=== PATIENT | female | born 1940 | race Caucasian/White ===

== ENCOUNTER 2022-05-12 19:29 | Inpatient (IN) | payer MEDICARE ==
[~2022-05-12] VITALS: Ht 162.6 cm; Wt 60.0 kg
[2022-05-12 19:46] VITALS: BP_SYST 136
[2022-05-12] MEDS ORDERED: KETAMINE HCL 500 MG/10 ML VIAL IVP ONE (20:00)
[2022-05-12] MEDS ORDERED: MIDAZOLAM HCL 5 MG/5 ML VIAL IVP ONE (20:00)
--- NOTE | 2022-05-12 21:00 | NUR ---
Patient resting in bed, alert and oriented x 4, no voiced c/o at this time. no s/s of any distress noted. Updated on plan of care, consent signed for bedside procedure. #22g established in right hand, side rails remain up will continue to monitor.
--- NOTE | 2022-05-12 21:28 | NUR ---
BEDSIDE PROCEDURE HAS BEEN COMPLETED, AWAITING POST XRAY. pATIENT RESTING AROUSABLE, NO VOICED C/O AT THIS TIME.
--- NOTE | 2022-05-12 22:11 | NUR ---
Patient aware may transfer to [facility], continues to rest without c/o, will continue to monitor.
--- NOTE | 2022-05-12 22:40 | NUR ---
Patient continues to rest without c/o, family at bedside has been updated on plan of care. no s/s of any distress noted.
--- NOTE | 2022-05-12 23:07 | NUR ---
COVID swab done at this time and sent to lab.
--- NOTE | 2022-05-12 23:47 | NUR ---
Patient and family informed that patient will be staying here, awaiting room assignment. Remains without any c/o at this time. side rails up.
--- NOTE | 2022-05-13 01:15 | NUR ---
Patient awake, repositioned for comfort, no voiced c/o, no s/s of any distress.
--- NOTE | 2022-05-13 03:09 | NUR ---
Patient repositioned for comfort, requested and given water at this time. no change in primay assessment.
--- NOTE | 2022-05-13 04:57 | NUR ---
Note meaghan in EDM - 05/13/22 at 0523 by SDEDAJF Admit bed requested Patient will be admitted to care of Admitted to MS unit. Diagnosis Dislocated right Hip Inpatient (Yes or No) yes Observation (Yes or No) Orientation concerns or request close to nursing station (Yes or No) no Covid Status positive On vent or bipap no Isolation requirements yes Needs a sitter no From Home (Yes or if No enter name of facility) yes Requires Dialysis (Yes or No) no Med Rec Completed (Yes of No) pending
--- NOTE | 2022-05-13 04:57 | NUR ---
Admit bed requested Patient will be admitted to care of Admitted to MS unit. Diagnosis Dislocated right Hip Inpatient (Yes or No) yes Observation (Yes or No) Orientation concerns or request close to nursing station (Yes or No) no Covid Status positive On vent or bipap no Isolation requirements yes Needs a sitter no From Home (Yes or if No enter name of facility) yes Requires Dialysis (Yes or No) yes, M/W/F Med Rec Completed (Yes of No) pending [facility] report
--- NOTE | 2022-05-13 05:22 | NUR ---
Repositioned at this time.
[2022-05-13] MEDS ORDERED: ACET1TAB93 PO (05:35)
[2022-05-13] MEDS ORDERED: LIP10 PO (05:36)
[2022-05-13] MEDS ORDERED: FAMO20TA8 PO (05:36)
[2022-05-13] MEDS ORDERED: FURO-150 PO (05:37)
[2022-05-13] MEDS ORDERED: LEVO125T8 PO (05:38)
[2022-05-13] MEDS ORDERED: REN800 PO (05:39)
[2022-05-13] MEDS ORDERED: DICL20GE TP (05:42)
[2022-05-13] MEDS ORDERED: DICL100G30 TP (05:42)
[2022-05-13] MEDS ORDERED: LIDO5CRE2 TP (05:45)
[2022-05-13] MEDS ORDERED: NALO4SPR3 NAS (05:46)
[2022-05-13] MEDS ORDERED: VITA1CAP PO (05:47)
[2022-05-13] MEDS ORDERED: VITD2000 PO (05:47)
[2022-05-13] MEDS ORDERED: ACLOVATE (05:50)
--- NOTE | 2022-05-13 05:50 | NUR ---
Medication reconciliation completed with information provided by [facility]. Any prior medication reconciliation on file was reviewed and corrected.
--- NOTE | 2022-05-13 06:42 | NUR ---
Requested and given water at this time. No change in primary assessment, remains without any c/o. Side rails remains up will continue frequent monitoring.
[2022-05-13] MEDS ORDERED: fentaNYL CITRATE/PF 100 MCG/2 ML AMP IVP ONE (07:30)
[2022-05-13 08:55] VITALS: BP_SYST 112
--- NOTE | 2022-05-13 09:02 | NUR ---
Patient will be admitted to care [facility]. Admitted to MED./SURG unit. Will go to room 134B. Belongings list completed. Complete and up to date summary report printed. SBAR report to MEÑO VAZ be given at bedside with opportunity for questions.
--- NOTE | 2022-05-13 10:00 | NUR ---
RECEIVED PATIENT FROM ED VIA STRETCHER ACCOMPANIED BY NURSE. PT IS A 82 YO FEMALE , ADMITTED WITH DX OF RT DISLOCATED FRACTURE. AAOX4, NO COMPLAINTS OF PAIN UPON ARRIVAL. PATIENT MADE COMFORTABLE IN BED. PT REFUSED TO BE TURNED DUE TO DISLOCATION OF RT HIP. COLOSTOMY AND RIGHT UROSTOMY NOTED AND INTACT. UNABLE TO DO FULL SKIN ASSESSMENT AT THIS TIME BECAUSE PATIENT REFUSED TO TURN. WILL F/U LATER. ADMISSION WORKUP IN PROGRESS. WILL CONTINUE TO MONITOR CLOSELY.
[2022-05-13 10:32] VITALS: BP_SYST 112
[2022-05-13 10:40] VITALS: BP_SYST 112
[2022-05-13] MEDS ORDERED: NON-FORMULARY MEDICATION (Diclofenac Sodium (Voltaren Arthritis Pain) 2 GM) TP PRN (14:00)
[2022-05-13] MEDS ORDERED: NALOXONE HCL NAS SCH (14:00)
[2022-05-13] MEDS ORDERED: NALOXONE HCL 0.4 MG/ML AMP (NARCAN) IVP PRN (14:00)
--- NOTE | 2022-05-13 14:01 | NUR ---
CONSULTATION PAGED REASON FOR CONSULTATION:RT HIP FRACTURE WAS CONSULT CALLED?Y PERSON WHO WAS NOTIFIED:MONI CONSULTING PHYSICIAN:SANDRA CONNELYL (SHONA PARKS PROFESSOR OF SOCIAL WORK) CATERING CHEF SPECIALTY:ORTHO CATERING CHEF PHONE NUMBER:[phone] REQUESTING PHYSICIAN:MICHELLE JOSEPH
--- NOTE | 2022-05-13 14:09 | NUR ---
CONSULTATION PAGED REASON FOR CONSULTATION:ESRF WAS CONSULT CALLED?Y PERSON WHO WAS NOTIFIED:ELMER CONSULTING PHYSICIAN:HEATHER BELL ADVERTISING SALES ASSISTANT SPECIALTY:NEPHRO ADVERTISING SALES ASSISTANT PHONE NUMBER:[phone] REQUESTING PHYSICIAN:MICHELLE ANDERSON
[2022-05-13] MEDS ORDERED: LIDOCAINE/PRILOCAINE 5 GM CREAM (EMLA) TP PRN (14:45)
[2022-05-13] MEDS: ACETAMINOPHEN/CODEINE 300 MG-30 MG TABLET PO PRN ×2 (15:39→22:10)
[2022-05-13 15:45] VITALS: BP_SYST 116
[2022-05-13 16:00] VITALS: BP_SYST 116
[2022-05-13] MEDS: SEVELAMER CARBONATE 800 MG TABLET PO SCH (17:02)
[2022-05-13] MEDS: ONDANSETRON HCL 4 MG/2 ML VIAL IVP PRN (17:33)
--- NOTE | 2022-05-13 18:36 | NUR ---
PT INSTRUCTED TO MAINTAIN NPO AFTER MIDNIGHT FOR SURGERY, VERBALIZED UNDERSTANDING.
--- NOTE | 2022-05-13 18:47 | NUR ---
DR BRINK ROUNDED ON PATIENT, PLANS FOR SURGERY TOMORROW. SPOKE WITH HIM REGARDING BUCKS TRACTION ORDERED BY DR SOTO, DR BRINK DO NOT RECOMMEND BUCKS TRACTION AT TIME. WILL NOTIFY DR ALINA GIANG.
[2022-05-13] MEDS: HYDROCORTISONE 1% 28.35 GM TOPICAL OINT. TP SCH (21:00)
[2022-05-13] MEDS ORDERED: ACLOVATE SCH (21:00)
[2022-05-13] MEDS: ENOXAPARIN SODIUM 30 MG/0.3 ML SYRINGE SUBCUT SCH (22:10)
[2022-05-14] VITALS (7 sets, daily range): BP systolic 73–130
[2022-05-14] MEDS: LEVOTHYROXINE SODIUM 0.125 MG TABLET PO SCH (06:19)
[2022-05-14 07:05] LABS: BASOPHILS % (AUTO) 0.5 % (0.0-2.0); EOSINOPHILS # (AUTO) 0.1 K/uL (0.0-0.4); EOSINOPHILS % (AUTO) 1.2 % (0.0-4.0); HEMATOCRIT 33.2 % (36-48); HEMOGLOBIN 10.9 g/dL (12.0-16.0); LYMPHOCYTES # (AUTO) 1.8 K/uL (1.0-5.5); LYMPHOCYTES % (AUTO) 19.9 % (20.5-51.5); MEAN CORPUSCULAR HEMOGLOBIN 32 pg (27-31); MEAN CORPUSCULAR HGB CONC 33 % (32-36); MEAN CORPUSCULAR VOLUME 97 fL (79.0-98.0); MONOCYTES # (AUTO) 1.1 K/uL (0.0-1.0); MONOCYTES % (AUTO) 12.4 % (1.7-9.3); NEUTROPHILS # (AUTO) 5.8 K/uL (1.8-7.7); PLATELET COUNT (AUTO) 273 K/uL (130-430); RED BLOOD CELL COUNT(AUTO) 3.41 MIL/uL (4.2-6.2); RED CELL DISTRIBUTION WIDTH 13.9 % (9.0-15.0); WHITE BLOOD COUNT (AUTO) 8.8 K/uL (4.8-10.8)
[2022-05-14 07:30] LABS: ANION GAP 14 (5-15); CALCIUM 9.6 mg/dL (8.4-11.0); CHLORIDE 95 mmol/L (98-107); CREATININE 7.36 mg/dL (0.55-1.30); GLUCOSE 101 mg/dL (70-99); UREA NITROGEN, BLOOD 55 mg/dL (8-21)
[2022-05-14] MEDS: SEVELAMER CARBONATE 800 MG TABLET PO SCH ×3 (08:00→18:06)
[2022-05-14] MEDS: FAMOTIDINE 20 MG TABLET PO SCH (09:00)
[2022-05-14] MEDS: ATORVASTATIN 10 MG TABLET PO SCH (09:00)
[2022-05-14] MEDS: CHOLECALCIFEROL (VITAMIN D3) 2,000 UNIT TABLET PO SCH (09:00)
[2022-05-14] MEDS: VITAMIN B COMPLEX 1 CAP/TAB PO SCH (09:00)
[2022-05-14] MEDS: FUROSEMIDE 20 MG TABLET PO SCH (09:00)
[2022-05-14] MEDS: HYDROCORTISONE 1% 28.35 GM TOPICAL OINT. TP SCH ×2 (09:01→21:00)
--- NOTE | 2022-05-14 14:02 | NUR ---
Surgery on hold per anesthesia for cardiac clearance. Dr. Rudolph called and notified. Echo and cardiology consult with Dr. Saucedo ordered. Valarie Acevedo RN.
--- NOTE | 2022-05-14 15:20 | NUR ---
CONSULTATION REASON FOR CONSULT: SURGERY CLEARANCE CONSULTING PHYSICIAN: Yamileth JENNINGS ORDERED BY: Renan LAURENT DR IS AWARE OF THE CONSULT AND WILL SEE PT TODAY
[2022-05-14] MEDS: ACETAMINOPHEN/CODEINE 300 MG-30 MG TABLET PO PRN (18:52)
--- NOTE | 2022-05-14 20:17 | NUR ---
Dietitian Recommendations * Remain NPO for planned Sx * Recommend advance to Renal diet + Nepro daily s/p Sx * Continue MVI and D3 daily Please refer to nutrition assessment for details, thanks! Aaliyah Bullock MPH, RDN
[2022-05-14] MEDS: ONDANSETRON HCL 4 MG/2 ML VIAL IVP PRN (20:19)
[2022-05-14] MEDS ORDERED: NS 500 ML IV ONE (21:00)
[2022-05-14] MEDS: ENOXAPARIN SODIUM 30 MG/0.3 ML SYRINGE SUBCUT SCH (21:00)
--- NOTE | 2022-05-14 22:00 | NUR ---
OPENING NOTE- ASSESSED PT AT BEDSIDE. PT AWAKE AND ORIENTED. C/O NAUSEA. V/S OBTAINED- BP 73/38 AND 76/43. MAP 53. S/P HD TODAY- NO OUTPUT.ALSO ASSESSED BY CHARGE NURSE MICHAELLE. MICHAELLE NOTIFIED TO DR COSTELLO AND RECEIVED ORDER TO GIVE 500 ML 0.9% NS. CHARGE NURSE ALSO NOTIFIED TO DR BASILIO REGARDING POSITIVE COVID 19 PCR RESULT.
[2022-05-15] VITALS (9 sets, daily range): BP systolic 81–115
--- NOTE | 2022-05-15 00:30 | NUR ---
AFTER 500 ML NS BOLUS, BP WENT UP-113/51 MMHG AND HR 88 BPM. INFORMED PT NPO AFTER MN FOR POSSIBLE RT HIP SURGERY.
[2022-05-15 04:06] LABS: ALANINE AMINOTRANSFERASE 31 U/L (12-78); ALBUMIN 2.4 g/dL (3.4-4.8); ANION GAP 8 (5-15); ASPARTATE AMINOTRANSFERASE 35 U/L (10-37); CALCIUM 8.7 mg/dL (8.4-11.0); CHLORIDE 98 mmol/L (98-107); CREATININE 4.73 mg/dL (0.55-1.30); GLUCOSE 120 mg/dL (70-99); TOTAL BILIRUBIN 0.5 mg/dL (0.0-1.0); UREA NITROGEN, BLOOD 32 mg/dL (8-21)
[2022-05-15 04:11] LABS: PROTHROMBIN TIME 10.5 SECS (9.5-12.5)
[2022-05-15] MEDS ORDERED: NS 500 ML IV ONE (06:30)
--- NOTE | 2022-05-15 06:37 | NUR ---
CALLED DR BASILIO REGARDING LOW BP-94/44 MMHG. WILL GIVE NS 500 ML BOLUS.
[2022-05-15] MEDS: LEVOTHYROXINE SODIUM 0.125 MG TABLET PO SCH (06:47)
[2022-05-15] MEDS: SEVELAMER CARBONATE 800 MG TABLET PO SCH ×4 (08:00→18:00)
[2022-05-15] MEDS: VITAMIN B COMPLEX 1 CAP/TAB PO SCH (09:00)
[2022-05-15] MEDS: ATORVASTATIN 10 MG TABLET PO SCH (09:00)
[2022-05-15] MEDS: FAMOTIDINE 20 MG TABLET PO SCH (09:00)
[2022-05-15] MEDS: FUROSEMIDE 20 MG TABLET PO SCH (09:00)
[2022-05-15] MEDS: CHOLECALCIFEROL (VITAMIN D3) 2,000 UNIT TABLET PO SCH (09:00)
--- NOTE | 2022-05-15 09:27 | NUR ---
PATIENT LEFT FOR SURGERY Patient left with OR nurses for surgery via hospital bed.
[2022-05-15] MEDS ORDERED: ETOMIDATE 20 MG/ 10 ML VIAL (AMIDATE) ONE (09:30)
[2022-05-15] MEDS ORDERED: SEVOFLURANE 15 MIN GAS INH ONE (09:30)
[2022-05-15] MEDS ORDERED: ONDANSETRON HCL 4 MG/2 ML VIAL ONE (09:30)
[2022-05-15] MEDS ORDERED: PROPOFOL 200MG/ 20ML VIAL (DIPRIVAN) IV ONE (09:30)
[2022-05-15] MEDS ORDERED: NS 1000 ML IV.SOLN IV ONE (09:30)
[2022-05-15] MEDS ORDERED: MEPERIDINE HCL/PF 25 MG/ML DISP.SYRIN IVP PRN (10:30)
[2022-05-15] MEDS ORDERED: METOCLOPRAMIDE HCL 10 MG/2 ML VIAL IVP PRN (10:30)
[2022-05-15] MEDS ORDERED: MORPHINE 4 MG INJ. 4 MG/ML VIAL IVP PRN (10:30)
[2022-05-15] MEDS ORDERED: ONDANSETRON HCL 4 MG/2 ML VIAL IVP PRN (10:30)
--- NOTE | 2022-05-15 11:22 | NUR ---
PATIENT RETURNED FROM PACU Patient returned to room, no sign of distress and denies pain at this time. Vitals taken and within normal range. Patient educated on safety precautions. Assisted patient in calling her daughter. All needs met at this time and safety checks made.
[2022-05-15] MEDS: ACETAMINOPHEN/CODEINE 300 MG-30 MG TABLET PO PRN (12:41)
[2022-05-15] MEDS: HYDROCORTISONE 1% 28.35 GM TOPICAL OINT. TP SCH ×2 (12:41→21:00)
--- NOTE | 2022-05-15 13:20 | NUR ---
LISBET Rudolph regarding patient's blood pressure. Addendum: 05/15/22 at 1341 by Tammie Lopez LVN SPOKE WITH , NEW ORDERS RECEIVED
[2022-05-15] MEDS: NACL 0.9% 1,000 ML IV SCH (13:45)
--- NOTE | 2022-05-15 14:24 | NUR ---
Request for transfer FAXed to [facility] per reque of Dr Abbasi
--- NOTE | 2022-05-15 14:32 | NUR ---
ROUNDS Patient in bed resting with eyes closed, no sign of distress or pain. Patient's breathing is nonlabored and even on room air. All needs met at this time and safety checks made.
--- NOTE | 2022-05-15 17:10 | NUR ---
SPOKE WITH PATIENT'S DAUGHTER Spoke with Maddy ([phone]), patient's daughter, and updated her on the patient's status and transfer to [facility]. All questions answered at this time.
--- NOTE | 2022-05-15 19:22 | NUR ---
CLOSING NOTE Patient in bed resting, no sign of distress and denies pain at this time. Patient tolerated her dinner and is drinking fluids. Patient and her family have been updated on the plan of care including discharge to [facility] when a bed is available, verbalized understanding. Comfort needs met throughout the shift. IV is patent and running prescribed fluids. All needs met at this time and safety checks made. Endorsed to night warehouse manager nurse.
--- NOTE | 2022-05-15 20:25 | NUR ---
Paged Dr. Shelley s/w Deloris
--- NOTE | 2022-05-15 20:30 | NUR ---
HIGH ALERT NOTE: Called back at identified within the medical roster to verify physician authenticity. Addendum: 05/15/22 at 2031 by Robin Forte RN RN [phone]
--- NOTE | 2022-05-15 20:30 | NUR ---
20:15 PM RECEIVED CALL FROM [facility]- CLARK FROM [facility] CALLED ABOUT PT'S BED. NURSE INFORMED TO [facility]ARK ABOUT PT'S LOW BP- 80'S/30'S EVEN THOUGH PT'S RECEIVING NS AT 70 ML/HR SINCE 2 PM. 20:30 PM -[facility] [employer] CALLED NURSE AGAIN REGARDING PT'S LOW BP. UPDATED WITH RECENT BP. SHE WANTS US TO TREAT PT'S LOW BP TONIGHT AND THEY WILL F/U IN AM. HOLD TRANSFER TONIGHT PER [facility].
--- NOTE | 2022-05-15 20:35 | NUR ---
PAGED DR [place]O. [facility] COSTELLO REGARDING PT'S HYPOTENSION. RECEIVED ORDER TO GIVE 25% ALBUMIN 100 ML X 1 AND CONTINUE NS AT 70 ML/HR.
[2022-05-15] MEDS ORDERED: ALBUMIN HUMAN 25% 100 ML IV ONE (20:45)
[2022-05-15] MEDS: ENOXAPARIN SODIUM 30 MG/0.3 ML SYRINGE SUBCUT SCH (21:27)
--- NOTE | 2022-05-15 21:30 | NUR ---
DR MENA MADE ROUNDING. MADE DR MENA AWARE ABOUT PT'S HYPOTENSION, DR COSTELLO'S ALBUMIN ORDER AND HOLD TRANSFER TO [facility]. ALSO INFORMED ABOUT COVID PCR POSITIVE RESULT AND STATED THAT WE NEED TO CONTINUE ISOLATION PROCEDURE.
[2022-05-16] VITALS (8 sets, daily range): BP systolic 92–108
--- NOTE | 2022-05-16 03:31 | NUR ---
PT ALLOWED US TO REMOVE OLD DIAPER- PT REFUSED DUE TO RT HIP PAIN AND UNABLE TO MOVE. NOTICED PT HAS NONBLANCHABLE REDNESS ON INNER ANKLE, RT INNER/POSTERIOR THIGH AND GROIN. GIVEN LANEY CARE. KEPT ABDUCTION PILLOW BETWEEN LEG. RLQ COLOSTOMY WITH BROWNISH LOOSE STOOL AND RT BACK NEPHROSTOMY TUBE WITH YELLOW SMALL AMOUNT URINE. LEFT AVF PRESENT BRUIT AND THRILL. OFFERED WATER FREQUENTLY. NS AT 70 ML/HR AND LAST BP-95/42 MMHG.
[2022-05-16] MEDS: NACL 0.9% 1,000 ML IV SCH ×2 (06:30→18:02)
[2022-05-16] MEDS: LEVOTHYROXINE SODIUM 0.125 MG TABLET PO SCH (06:39)
[2022-05-16 07:18] LABS: BASOPHILS % (AUTO) 0.5 % (0.0-2.0); EOSINOPHILS # (AUTO) 0.1 K/uL (0.0-0.4); LYMPHOCYTES # (AUTO) 1.2 K/uL (1.0-5.5); LYMPHOCYTES % (AUTO) 22.6 % (20.5-51.5); MEAN CORPUSCULAR HEMOGLOBIN 32 pg (27-31); MEAN CORPUSCULAR HGB CONC 33 % (32-36); MEAN CORPUSCULAR VOLUME 98 fL (79.0-98.0); MONOCYTES # (AUTO) 0.8 K/uL (0.0-1.0); MONOCYTES % (AUTO) 15.1 % (1.7-9.3); NEUTROPHILS # (AUTO) 3.3 K/uL (1.8-7.7); NEUTROPHILS % (AUTO) 59.8 % (40.0-70.0); PLATELET COUNT (AUTO) 165 K/uL (130-430); RED BLOOD CELL COUNT(AUTO) 2.01 MIL/uL (4.2-6.2); RED CELL DISTRIBUTION WIDTH 13.7 % (9.0-15.0); WHITE BLOOD COUNT (AUTO) 5.5 K/uL (4.8-10.8)
[2022-05-16 07:24] LABS: ANION GAP 12 (5-15); CALCIUM 7.4 mg/dL (8.4-11.0); CHLORIDE 106 mmol/L (98-107); CREATININE 5.08 mg/dL (0.55-1.30); GLUCOSE 83 mg/dL (70-99); UREA NITROGEN, BLOOD 42 mg/dL (8-21)
[2022-05-16 08:00] LABS: HEMATOCRIT 19.7 % (36-48); HEMOGLOBIN 6.5 g/dL (12.0-16.0)
--- NOTE | 2022-05-16 08:00 | NUR ---
Relayed critical result of H/H (6.5/19.7) to Dr. Rudolph with order to transfuse 2 units of PRBC during Dialysis. House sup and dialysis nurse made aware. Patient's asymptomatic for Anemia, no bleeding noted. HR within normal limit.
[2022-05-16] MEDS: HYDROCORTISONE 1% 28.35 GM TOPICAL OINT. TP SCH ×2 (09:00→23:28)
[2022-05-16] MEDS: FAMOTIDINE 20 MG TABLET PO SCH (10:10)
[2022-05-16] MEDS: SEVELAMER CARBONATE 800 MG TABLET PO SCH ×3 (10:10→18:00)
[2022-05-16] MEDS: FUROSEMIDE 20 MG TABLET PO SCH (10:10)
[2022-05-16] MEDS: VITAMIN B COMPLEX 1 CAP/TAB PO SCH (10:10)
[2022-05-16] MEDS: ATORVASTATIN 10 MG TABLET PO SCH (10:11)
[2022-05-16] MEDS: CHOLECALCIFEROL (VITAMIN D3) 2,000 UNIT TABLET PO SCH (10:11)
--- NOTE | 2022-05-16 11:00 | NUR ---
Vania from [facility] called. Updated her on patient's condition that patient will receive 2 units of PRBC's due to H/H 6.5/19.7. Vania said we'll see if the patient is stable to transfer tomorrow. Patient's a/o x4, verbally responsive in no acute distress. BP's still in low side, high 90's to low 100's, patient's asymptomatic.
--- NOTE | 2022-05-16 19:15 | NUR ---
change of shift.pt.presents isolation;droplet 2/t covid19+status.pt.presents s/p surgery lt.hip reduction.pt.presents iv access location rt.hand intact;patent iv fluids infusing.pt.presents hemo-dialysis history.pt.dialized:05/16/22.h/d acces location:lt.av-shunt.pt.maintains b/p status low status.md's apprised.pt.presents 02-sat%=96@room air.pt.presents rt. nephrostomy tube intact;patent.pt.submitted to blood transfusion:05/16/22.completed.cbc in am.allison light/telephone w/in access of the pt.
--- NOTE | 2022-05-16 20:00 | NUR ---
pt.assessed.v/s assessed values note b/p status low status.pt.asypmtomatic.o2-sat%=96%@room air.iv access intact;patent.rt.nephrostomy tube intact.colostomy location rlq intact;patent.pt.assessed for cleanliness.pt. repositioned.pt.apprised that snacks/beverages are available w/in the shift.jpt.requested water;provided.call light/telephone placed w/in access of the pt.
--- NOTE | 2022-05-16 21:00 | NUR ---
2100p medications administered.pt.capable to ingest the po medications w/out difficulty.call light/telephone placed w/in access of the pt.
--- NOTE | 2022-05-16 22:00 | NUR ---
pt.assessed.pt.requested medication;pain.tylenol#3 1 tab po administered.to assess the efficacy of the pain medication per pain mgx protocol.iv access,rt.nephrostomy tube intact,patent.o2-sat%=96%.pt.assessed for cleanliness.pt.repositioned.call light/ telephone placed w/in access of the pt.
[2022-05-16] MEDS: ENOXAPARIN SODIUM 30 MG/0.3 ML SYRINGE SUBCUT SCH (23:28)
[2022-05-16] MEDS: ACETAMINOPHEN/CODEINE 300 MG-30 MG TABLET PO PRN (23:29)
--- NOTE | 2022-05-17 | NUR ---
pt.assessed.v/s assessed values note b/p status;low status.02-sat%=96%.no c/o pain,nausea.no requests posited @this hour.iv access/nephrostomy tube intact;patent.pt.repositioned.call light/telephone placed w/in access of the pt.
[2022-05-17 00:28] VITALS: BP_SYST 98
--- NOTE | 2022-05-17 02:00 | NUR ---
pt.assessed.pt.quiescent;somnolent.o2-sat%=96%.per flacc pain mgx pt.absent facial grimaces/body posturing.iv access/ nephrostomy tube intact.pt.repositioned.call light/telephone placed w/in access of the pt.
--- NOTE | 2022-05-17 04:00 | NUR ---
pt.assessed.v/s assessed note b/p value low status.iv access,rt.nephrotomy,colostomy intact;patent.o2-sat%=96%. pt.assessed for cleanliness.pt.repositioned.call light/telephone placed w/in access of the pt.
--- NOTE | 2022-05-17 06:00 | NUR ---
pt.assessed.no c/o pain,nausea.rt.nephrostomy,colostomy attended to.02-sat%=96%.pt.weighed.pt.repositioned. call light/telephone placed w/in access of the pt.
[2022-05-17] MEDS: LEVOTHYROXINE SODIUM 0.125 MG TABLET PO SCH (07:00)
[2022-05-17 07:19] LABS: BASOPHILS % (AUTO) 0.3 % (0.0-2.0); EOSINOPHILS # (AUTO) 0.1 K/uL (0.0-0.4); EOSINOPHILS % (AUTO) 1.6 % (0.0-4.0); HEMATOCRIT 25.6 % (36-48); HEMOGLOBIN 8.6 g/dL (12.0-16.0); LYMPHOCYTES # (AUTO) 0.9 K/uL (1.0-5.5); MEAN CORPUSCULAR HEMOGLOBIN 31 pg (27-31); MEAN CORPUSCULAR HGB CONC 34 % (32-36); MEAN CORPUSCULAR VOLUME 93 fL (79.0-98.0); MONOCYTES # (AUTO) 0.6 K/uL (0.0-1.0); NEUTROPHILS # (AUTO) 2.4 K/uL (1.8-7.7); NEUTROPHILS % (AUTO) 60.1 % (40.0-70.0); PLATELET COUNT (AUTO) 174 K/uL (130-430); RED BLOOD CELL COUNT(AUTO) 2.77 MIL/uL (4.2-6.2); RED CELL DISTRIBUTION WIDTH 15.9 % (9.0-15.0)
[2022-05-17 07:33] LABS: ANION GAP 12 (5-15); CHLORIDE 109 mmol/L (98-107); CREATININE 2.95 mg/dL (0.55-1.30); GLUCOSE 74 mg/dL (70-99); UREA NITROGEN, BLOOD 22 mg/dL (8-21)
[2022-05-17 07:47] VITALS: BP_SYST 111
[2022-05-17 07:53] LABS: CALCIUM 6.9 mg/dL (8.4-11.0)
[2022-05-17] MEDS: SEVELAMER CARBONATE 800 MG TABLET PO SCH ×3 (08:00→18:00)
[2022-05-17] MEDS: HYDROCORTISONE 1% 28.35 GM TOPICAL OINT. TP SCH ×2 (09:00→21:00)
[2022-05-17] MEDS: FAMOTIDINE 20 MG TABLET PO SCH (09:10)
[2022-05-17] MEDS: VITAMIN B COMPLEX 1 CAP/TAB PO SCH (09:10)
[2022-05-17] MEDS: FUROSEMIDE 20 MG TABLET PO SCH (09:10)
[2022-05-17] MEDS: ATORVASTATIN 10 MG TABLET PO SCH (09:10)
[2022-05-17] MEDS: CHOLECALCIFEROL (VITAMIN D3) 2,000 UNIT TABLET PO SCH (09:11)
[2022-05-17] MEDS: NACL 0.9% 1,000 ML IV SCH (09:12)
--- NOTE | 2022-05-17 10:41 | NUR ---
[facility] REQUESTS BED IN MEDICAL SURGICAL UNIT FOR PATIENT TRANSFER. NEW REQUEST TO HAVE PATIENT IN AGREEMENT FOR TRANSFER WITH COPY OF CHART AND CD AVAILABLE.
--- NOTE | 2022-05-17 12:10 | NUR ---
PATIENT SAYS SHE ONLY USES [facility] WHEN SHE IS NOT ON HER RENAL DIET.
[2022-05-17 14:13] VITALS: BP_SYST 114
[2022-05-17 18:09] VITALS: BP_SYST 112
[2022-05-17 20:00] VITALS: BP_SYST 118
[2022-05-17] MEDS: ENOXAPARIN SODIUM 30 MG/0.3 ML SYRINGE SUBCUT SCH (21:00)
--- NOTE | 2022-05-17 21:22 | NUR ---
CALLED AFTER [facility]OUR [facility] SPOKE WITH AFTER HOURS AND PER FRONT END UI DEVELOPER NOTES IT SAYS NO BEDS AVAIL. AT [facility] . WILL WORK ON IT AGAIN. IT SAYS MIGHT TO DISPO PT TO SNF WOULD BE FASTER.
[2022-05-18] MEDS: ACETAMINOPHEN/CODEINE 300 MG-30 MG TABLET PO PRN ×2 (00:28→21:42)
[2022-05-18] MEDS: NACL 0.9% 1,000 ML IV SCH ×3 (00:30→23:23)
[2022-05-18 04:00] VITALS: BP_SYST 105
[2022-05-18 05:50] LABS: BASOPHILS % (AUTO) 0.4 % (0.0-2.0); EOSINOPHILS # (AUTO) 0.1 K/uL (0.0-0.4); EOSINOPHILS % (AUTO) 2.5 % (0.0-4.0); HEMATOCRIT 27.3 % (36-48); HEMOGLOBIN 9.2 g/dL (12.0-16.0); LYMPHOCYTES % (AUTO) 19.2 % (20.5-51.5); MEAN CORPUSCULAR HEMOGLOBIN 31 pg (27-31); MEAN CORPUSCULAR HGB CONC 34 % (32-36); MEAN CORPUSCULAR VOLUME 93 fL (79.0-98.0); MONOCYTES # (AUTO) 0.8 K/uL (0.0-1.0); MONOCYTES % (AUTO) 14.2 % (1.7-9.3); NEUTROPHILS # (AUTO) 3.4 K/uL (1.8-7.7); NEUTROPHILS % (AUTO) 63.7 % (40.0-70.0); PLATELET COUNT (AUTO) 214 K/uL (130-430); RED BLOOD CELL COUNT(AUTO) 2.94 MIL/uL (4.2-6.2); RED CELL DISTRIBUTION WIDTH 15.9 % (9.0-15.0); WHITE BLOOD COUNT (AUTO) 5.3 K/uL (4.8-10.8)
[2022-05-18 06:15] LABS: ALANINE AMINOTRANSFERASE 28 U/L (12-78); ANION GAP 11 (5-15); ASPARTATE AMINOTRANSFERASE 28 U/L (10-37); CALCIUM 8.6 mg/dL (8.4-11.0); CHLORIDE 103 mmol/L (98-107); CREATININE 5.05 mg/dL (0.55-1.30); GLUCOSE 103 mg/dL (70-99); TOTAL BILIRUBIN 0.9 mg/dL (0.0-1.0); UREA NITROGEN, BLOOD 41 mg/dL (8-21)
[2022-05-18] MEDS: LEVOTHYROXINE SODIUM 0.125 MG TABLET PO SCH (06:56)
[2022-05-18 07:38] VITALS: BP_SYST 116
[2022-05-18] MEDS: SEVELAMER CARBONATE 800 MG TABLET PO SCH ×3 (08:00→18:00)
[2022-05-18] MEDS: VITAMIN B COMPLEX 1 CAP/TAB PO SCH (08:48)
[2022-05-18] MEDS: ATORVASTATIN 10 MG TABLET PO SCH (08:48)
[2022-05-18] MEDS: FAMOTIDINE 20 MG TABLET PO SCH (08:48)
[2022-05-18] MEDS: CHOLECALCIFEROL (VITAMIN D3) 2,000 UNIT TABLET PO SCH (08:49)
[2022-05-18] MEDS: FUROSEMIDE 20 MG TABLET PO SCH (08:50)
[2022-05-18] MEDS: HYDROCORTISONE 1% 28.35 GM TOPICAL OINT. TP SCH ×2 (08:57→21:00)
[2022-05-18 11:38] VITALS: BP_SYST 101
[2022-05-18] MEDS: ONDANSETRON HCL 4 MG/2 ML VIAL IVP PRN ×2 (11:40→21:27)
--- NOTE | 2022-05-18 12:20 | NUR ---
Patient requests any [place] facility in [facility] instead of [facility] as per her previously request and Insurance recommendation of ARU or SNF.
--- NOTE | 2022-05-18 12:29 | NUR ---
Spoke w/property analyst at [facility] [phone]-Faxed updated orders to her. The MD at [facility] will call Dr Azevedo regarding transfer.
[2022-05-18 16:00] VITALS: BP_SYST 111
--- NOTE | 2022-05-18 18:05 | NUR ---
CHANGE COLOSTOMY BAG AT PATIENT REQUEST.
--- NOTE | 2022-05-18 19:15 | NUR ---
CHANGE OF SHIFT: endorsed by day shift. on Covid isolation. S/P rt. hi[p open reduction 05/15. on safety precautions. call light at bedside.
[2022-05-18 20:00] VITALS: BP_SYST 113
--- NOTE | 2022-05-18 20:30 | NUR ---
NOTES: pt. checked, awake, alert and oriented. complete hs ca/jay care done. repositioned. S/P rt. hip open reduction, post op dressing dry and intact. on room air, instructed on deep breathing. IVF infusing via rt. upper arm. both arm slight contracted due to arthritis. pt. with colostomy, and rt. nephrrostomy. abduction pillow intact. some swelling on upper thigh. noted some abdominal discomfort for feeloing of gas, said IV Zofran helps her, will check and medicate. pt. needs attended. observed isolation for Covid. call light withion reach. bed alarm on.
[2022-05-18] MEDS: ENOXAPARIN SODIUM 30 MG/0.3 ML SYRINGE SUBCUT SCH (21:23)
[2022-05-18] MEDS: MEGESTROL ACETATE 400 MG/10 ML UDC PO SCH (21:30)
--- NOTE | 2022-05-18 22:50 | NUR ---
NOTES: pt. called, repositioned. noted some relief on her right hip. call light within reach.
--- NOTE | 2022-05-18 23:20 | NUR ---
NOTES: pt. very uncomfortable, her rt. shoulder bothering her. repositioned and lotion applied on rt. shoulder and below it and supported with pillow. keep HOB elevated. call ligth at bedside.
[2022-05-19] VITALS: BP_SYST 107
--- NOTE | 2022-05-19 01:30 | NUR ---
NOTES: pt. checked, been dozing on and off. no distress. call light within reach.
--- NOTE | 2022-05-19 03:25 | NUR ---
NOTES: condition observed. no further complaints at this time.
--- NOTE | 2022-05-19 05:50 | NUR ---
NOTES: due am care done. abduction pillow intact. IVF continuous.
[2022-05-19] MEDS: ONDANSETRON HCL 4 MG/2 ML VIAL IVP PRN (06:37)
[2022-05-19] MEDS: LEVOTHYROXINE SODIUM 0.125 MG TABLET PO SCH (06:38)
[2022-05-19] MEDS: ACETAMINOPHEN/CODEINE 300 MG-30 MG TABLET PO PRN ×2 (06:46→15:44)
--- NOTE | 2022-05-19 06:49 | NUR ---
CLOSING NOTES; pt. c/o nausea and pain on lher rt. hip, medicated with IV Zofran/Tylenol as orderd. pt. needs attended. observed Covid isolation. call light within reach. rt. hip dressing intacty and colostomy.
[2022-05-19 08:00] VITALS: BP_SYST 118
--- NOTE | 2022-05-19 08:00 | NUR ---
OPENING NOTES: PT IN BED A/OX4. NO S/S OF DISTRESS. COMPLAINING OF PAIN IN STOMACH. BREATHING EVEN AND UNLABORED ON RA. ALL NEEDS MET AT THIS TIME, SAFETY CHECKS MADE AND CALL LIGHT WITHIN REACH.
[2022-05-19] MEDS: SEVELAMER CARBONATE 800 MG TABLET PO SCH ×3 (09:33→17:57)
[2022-05-19] MEDS: MEGESTROL ACETATE 400 MG/10 ML UDC PO SCH ×2 (09:33→20:08)
[2022-05-19] MEDS: FAMOTIDINE 20 MG TABLET PO SCH (09:33)
[2022-05-19] MEDS: ATORVASTATIN 10 MG TABLET PO SCH (09:34)
[2022-05-19] MEDS: VITAMIN B COMPLEX 1 CAP/TAB PO SCH (09:34)
[2022-05-19] MEDS: CHOLECALCIFEROL (VITAMIN D3) 2,000 UNIT TABLET PO SCH (09:34)
[2022-05-19] MEDS: FUROSEMIDE 20 MG TABLET PO SCH (09:34)
[2022-05-19] MEDS: HYDROCORTISONE 1% 28.35 GM TOPICAL OINT. TP SCH ×2 (12:09→21:00)
--- NOTE | 2022-05-19 12:18 | NUR ---
ROUNDS: PT IN BED A/O X4 EATING LUNCH WITH VENDING MACHINE OPERATOR ASSISTANCE. PT IS COMPLAINING OF HAVING DIFFICULTY SWALLOWING DUE TO DRY THROAT ON FLUID RESTRICTION. EDUCATED PT THAT HAVING HOB ELEVATED MORE AND TILTING HER HEAD FORWARD WHEN SHE SWALLOWS WILL HELP HER SWALLOW. PT DEMONSTRATED EDUCATION AND SAID IT HELPED. NO S/S OF DISTRESS OR PAIN REPORTED. BREATHING IS EVEN AND UNLABORED ON RA. ALL NEEDS MET AT THIS TIME, SAFETY CHECKS MADE AND CALL LIGHT WITHIN REACH.
--- NOTE | 2022-05-19 12:51 | NUR ---
PHYSICAL THERAPY MATT FROM PT SAID THAT WE ARE AWAITING HIP ABDUCTION [facility] BEFORE THEY CAN DO PHYSICAL THERAPY WITH THE PATIENT. PT POSSIBLY SCHEDULED FOR SATURDAY IF [facility] ARRIVES.
[2022-05-19 12:56] VITALS: BP_SYST 111
[2022-05-19] MEDS ORDERED: SIMETHICONE 80 MG TAB.CHEW PO PRN (13:15)
--- NOTE | 2022-05-19 13:31 | NUR ---
MD DR BRANDT WAS INQUIRING ABOUT PT STATUS. REPORT GIVEN AND NEW ORDERS PLACED.
[2022-05-19] MEDS ORDERED: BISACODYL 5 MG TABLET.DR (DULCOLAX) PO PRN (13:45)
--- NOTE | 2022-05-19 14:30 | NUR ---
Nutrition F/U Admitting Diagnosis Dislocated Right Hip Reviewed Pertinent Medical/Surgical Hx Medical Record Other Medical History Comment: Per EMR: 82y female who presented to ED c/o R hip pain. After assessment, patient found with R hip dislocation. 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 SARS-CoV-2 Ag (Rapid) Positive 05/12 & COVID-19 (SIMBA) Positive 05/14 Subjective Information: RD bedside visit deferred to minimize exposure to COVID-19. Per EMR review, pt was noted w/ difficulty swallowing today d/t dry throat and fluid restriction, however, nursing advised pt to keep HOB elevated and tilt head forward while swallowing, and pt reported that this helped; pt is POD 4 s/p closed reduction of R hip; pt is on RA; poor PO intakes noted; abd is firm w/ absent bowel sounds. If difficulty swallowing persists, consider formal ST swallow eval. Pt may benefit from supplementation for optimal nutrition and lean muscle mass preservation. Current Diet Order/Nutrition Support: Renal x4 days Pertinent Medications: megace, VIT B complex, lasix, pepcid, VIT D3, lipitor, synthroid, lovenox, renvela, zofran Pertinent Labs: K 4.9 WNL, BUN 41 H, CRE 5.05 H, BG 103 H Height (Feet) 5 feet Height (Inches) 4.00 inches Weight (Pounds) 125 pounds (05/14) Patient Weight 56.699 kg Body Mass Index 21.45 kg/m2 NEW DOCUMENTED WT: 132#/60 kg (05/17) -- note 7# wt gain within 3 days, possibly d/t fluid shifts a/w ESRD [place]/Adjusted Body Weight 120lbs/ 55kg Recent Weight Change Unable to Assess Weight Status Appropriate Gastrointestinal Symptoms None Last BM R lower abd w/ colostomy -- 200 ml formed/brown stool noted 05/18 Usual Diet At Home Regular diet per initial RN screening Skin Integrity Comment: Tito Score: 15; no PIs and non-pitting edema to LLE per EMR review Current % PO 30% average x13 meal records -- poor Estimated Energy Expenditure (kcals/day) 5139-7097 (30-35 kcal/kg for ESRD on HD, COVID19, Sx) Estimated Protein Required (g/day) 68-86 (1.2-1.5 g/kg for ESRD on HD, COVID19, Sx) Estimated Fluid Required (l/day) Per physician d/t ESRD Problem/Etiology/Signs/Symptoms * Increased energy utilization r/t metabolic demands a/e/b estimated nutritional needs for ESRD, COVID19, Sx. *Ongoing Expected Outcomes/Goals PO intake provides >85% estimated nutritional needs, nutrition-related labs WNL, normal GI function, wt fluctuations expected w/HD, skin integrity Dietitian Recommendations * Renal diet, Nepro BID, Fuad BID (supplements yield 1020 kcal/day, 43 gm protein/day) * Encourage good PO intakes * Consider Nephrovite * Continue VIT D3 & B complex Follow Up High Risk: F/U in 2-3 days
--- NOTE | 2022-05-19 14:40 | NUR ---
Dietitian Recommendations * Renal diet, Nepro BID, Fuad BID (supplements yield 1020 kcal/day, 43 gm protein/day) * Encourage good PO intakes * Consider Nephrovite * Continue VIT D3 & B complex LP, MS, RD Please refer to Nutrition F/U for details.
--- NOTE | 2022-05-19 15:05 | NUR ---
PLACEMENT VENA FROM [facility] CALLED ABOUT PT UPDATE STATUS THEN STATED THAT THE BED PLACEMENT IS A DAY BY DAY SITUATION. THEY WILL CHECK TO SEE IF THERE IS A BED AVAILABLE TODAY AND WILL CALL US BACK. IF THEY DO NOT CALL US BACK THEY WILL TRY AGAIN TOMORROW (05/20/22)
--- NOTE | 2022-05-19 15:50 | NUR ---
PRN PT ASKED FOR PRN PAIN MEDS. ADMINISTERED.
[2022-05-19 16:00] VITALS: BP_SYST 115
--- NOTE | 2022-05-19 16:10 | NUR ---
TRANSFER: DEWE[facility] FROM [facility] CALLED AND SAID THEY ARE FAXING OVER TRANSFER CHECKLIST. THEY ARE WORKING ON GETTING HER TRANSFERRED. WHEN THEY DO THEY WILL PROVIDE TRANSPORT.
--- NOTE | 2022-05-19 16:45 | NUR ---
TRANSFER VENA FROM [facility] CALLED AND SAID THAT THEIR ORTHO DR AUGUSTE SAID THAT THE HIP SURGERY IS ELECTIVE AND THEY WILL NOT ACCEPT TRANSFER. PT WILL NEED REFERRAL.
--- NOTE | 2022-05-19 17:02 | NUR ---
NOTES: UPDATED DAUGHTER JOSE CARLOS VARNER ON PT CARE OF PLAN. VERBALIZED UNDERSTANDING.
[2022-05-19] MEDS: NACL 0.9% 1,000 ML IV SCH (17:24)
--- NOTE | 2022-05-19 18:21 | NUR ---
CLOSING NOTES: PT IN BED A/O X 4. BREATHING IS EVEN AND UNLABORED ON RA.. NO S/S OF DISTRESS OR PAIN REPORTED. PT REQUESTED TO REPOSITIONED AND PULLED UP IN BED. ALL NEEDS MET AT THIS TIME, SAFETY CHECKS MADE AND CALL LIGHT WITHIN REACH. WILL ENDORSE TO NIGHT NURSE. WILL NOT BE TRANSFERRING TO [facility] AT THIS TIME.
--- NOTE | 2022-05-19 19:30 | NUR ---
Report received from day shift RN for continuity of care. Patient in bed resting at the moment. No distress.
[2022-05-19 20:00] VITALS: BP_SYST 132
[2022-05-19] MEDS: DOCUSATE SODIUM 100 MG CAPSULE PO SCH (20:08)
[2022-05-19] MEDS: ENOXAPARIN SODIUM 30 MG/0.3 ML SYRINGE SUBCUT SCH (20:08)
[2022-05-19] MEDS: MELATONIN 3 MG TABLET PO PRN (22:53)
[2022-05-19 23:51] VITALS: BP_SYST 134
--- NOTE | 2022-05-19 23:52 | NUR ---
Cleaned patient. Turned as appropriate. Applied cream to affected areas. Pictures taken of skin issues.
[2022-05-20] MEDS: ACETAMINOPHEN/CODEINE 300 MG-30 MG TABLET PO PRN (01:06)
--- NOTE | 2022-05-20 01:24 | NUR ---
Report given to ТАТЬЯНА Ha for continuity of care. Patient stable. Resting.
[2022-05-20] MEDS: LEVOTHYROXINE SODIUM 0.125 MG TABLET PO SCH (06:33)
--- NOTE | 2022-05-20 06:40 | NUR ---
Closing notes Pt asleep, easily awakens, no s/s distress or discomfort noted. Abductor pillow on. IVF infusing ANA 22G clear and patent. R. nephrostomy drained 30cc brown, cloudy urine. No output noted on colostomy, pt denies abd pain or discomfort. Call light within reach. Safety maintained. To endorse to AM nurse.
[2022-05-20 08:00] VITALS: BP_SYST 126
[2022-05-20] MEDS: SEVELAMER CARBONATE 800 MG TABLET PO SCH ×3 (08:00→17:54)
[2022-05-20] MEDS ORDERED: POLYETHYLENE GLYCOL 3350, 17 GM/ POWD.PACK PO SCH (09:00)
[2022-05-20] MEDS: VITAMIN B COMPLEX 1 CAP/TAB PO SCH (10:41)
[2022-05-20] MEDS: FUROSEMIDE 20 MG TABLET PO SCH (10:41)
[2022-05-20] MEDS: MEGESTROL ACETATE 400 MG/10 ML UDC PO SCH ×2 (10:41→21:32)
[2022-05-20] MEDS: FAMOTIDINE 20 MG TABLET PO SCH (10:41)
[2022-05-20] MEDS: ATORVASTATIN 10 MG TABLET PO SCH (10:41)
[2022-05-20] MEDS: DOCUSATE SODIUM 100 MG CAPSULE PO SCH ×2 (10:42→21:32)
[2022-05-20] MEDS: CHOLECALCIFEROL (VITAMIN D3) 2,000 UNIT TABLET PO SCH (10:42)
[2022-05-20] MEDS: HYDROCORTISONE 1% 28.35 GM TOPICAL OINT. TP SCH ×2 (10:43→21:34)
[2022-05-20 12:00] VITALS: BP_SYST 143
[2022-05-20 16:00] VITALS: BP_SYST 148
--- NOTE | 2022-05-20 17:00 | NUR ---
This property underwriter spoke with Judy from [facility] [phone]. she states that she spoke with orthopedics at . She states that she was informed that Miss Rodríguez needs an outpatient appointment to correct her hip. She states that Miss Rodríguez should be DC and follow up with her orthopedic physician from home. Miss Roman states that she was told that she will have a brace placed prior to DC from [place]
[2022-05-20] MEDS: NACL 0.9% 1,000 ML IV SCH ×2 (17:54→22:27)
--- NOTE | 2022-05-20 18:30 | NUR ---
Miss Roman is resting quietly she is very difficult to reposition. she has had no output from her colostomy. She eats very little with every meal. She has tolerated PO meds well today. Output from the nephrostomy tube is dark and foul smelling. the fistula to the upper left are is positive for thrill and bruit. She continues to deny pain. She has been assisted with all meals and is presently resting quietly
--- NOTE | 2022-05-20 19:15 | NUR ---
Hand off has been given to Dilcia
[2022-05-20 21:20] VITALS: BP_SYST 102
--- NOTE | 2022-05-20 21:28 | NUR ---
rounds Dr. Rohini boggs.
[2022-05-20] MEDS: ENOXAPARIN SODIUM 30 MG/0.3 ML SYRINGE SUBCUT SCH (21:33)
--- NOTE | 2022-05-20 22:46 | NUR ---
STAT CONSULT CALLED Reason for Consult: Abdominal obstruction Was consult called: Y Person who was notified: Kermit Consulting Physician: Junior Moe Ordering Physician: Dr. Nova
--- NOTE | 2022-05-20 22:55 | NUR ---
PT off to cat scan. No s/s distress.
[2022-05-21] MEDS: MELATONIN 3 MG TABLET PO PRN (00:01)
[2022-05-21] MEDS ORDERED: MELATONIN 3 MG TABLET ONE (00:01)
--- NOTE | 2022-05-21 01:10 | NUR ---
Rounds/O2 desat This RN returned from break. Per Esequiel RN, pt c/o hyperventilating O2 sat 80's. Pt was placed on O2 10L and switch to non-rebreather mask 6L O2 up to 96%. Will reassess.
[2022-05-21 01:12] VITALS: BP_SYST 125
[2022-05-21 01:49] LABS: BASOPHILS % (AUTO) 0.2 % (0.0-2.0); EOSINOPHILS % (AUTO) 0.2 % (0.0-4.0); HEMATOCRIT 36.1 % (36-48); HEMOGLOBIN 11.8 g/dL (12.0-16.0); LYMPHOCYTES # (AUTO) 1.1 K/uL (1.0-5.5); LYMPHOCYTES % (AUTO) 7.8 % (20.5-51.5); MEAN CORPUSCULAR HEMOGLOBIN 30 pg (27-31); MEAN CORPUSCULAR HGB CONC 33 % (32-36); MEAN CORPUSCULAR VOLUME 93 fL (79.0-98.0); MONOCYTES # (AUTO) 1.2 K/uL (0.0-1.0); NEUTROPHILS # (AUTO) 11.6 K/uL (1.8-7.7); NEUTROPHILS % (AUTO) 82.8 % (40.0-70.0); PLATELET COUNT (AUTO) 433 K/uL (130-430); RED BLOOD CELL COUNT(AUTO) 3.89 MIL/uL (4.2-6.2); RED CELL DISTRIBUTION WIDTH 16.5 % (9.0-15.0); WHITE BLOOD COUNT (AUTO) 13.9 K/uL (4.8-10.8)
[2022-05-21 02:01] LABS: ANION GAP 18 (5-15); CALCIUM 9.4 mg/dL (8.4-11.0); CHLORIDE 102 mmol/L (98-107); CREATININE 5.66 mg/dL (0.55-1.30); GLUCOSE 96 mg/dL (70-99); UREA NITROGEN, BLOOD 66 mg/dL (8-21)
--- NOTE | 2022-05-21 02:20 | NUR ---
Pt alert, awake, O2 sat rechecked on 2L NC 92-95%. Pt's extremities are cold to touch. Bladder scan pt noted 185cc, pt denies any bladder discomfort. Call light within reach.
[2022-05-21 04:05] VITALS: BP_SYST 123
--- NOTE | 2022-05-21 05:10 | NUR ---
EKG at bedside.
--- NOTE | 2022-05-21 06:15 | NUR ---
Paged CTAP result Paged Dr. Nova, spoke with Sunni, awaiting callback.
--- NOTE | 2022-05-21 06:24 | NUR ---
Closing notes/Paged Paged and spoke with Dr. Velasquez and informed of CTAP result SBO. Order received for small bowel series. Pt alert, awake, 3L O2 on. Pt maintained NPO. IVF infusing R. FA 22G NS @ 70 clear and patent. Colostomy no output noted. R. nephrostomy minimal output. Left AV shunt with good thrill and bruit. Abductor pillow on. Safety maintained. To endorse to AM nurse.
[2022-05-21] MEDS: LEVOTHYROXINE SODIUM 0.125 MG TABLET PO SCH (06:32)
--- NOTE | 2022-05-21 07:09 | NUR ---
MD called back Received callback from Dr. Nova and informed of CTAP results (SBO, severe left hydronephrosis), and that Dr. Velasquez informed of SBO and ordered sm bowel series. Per MD to maintain Pt NPO. Informed MD pt c/o she can't speak, per md give oral swabs.
[2022-05-21 07:54] LABS: ANION GAP 15 (5-15); CREATININE 3.23 mg/dL (0.55-1.30); GLUCOSE 57 mg/dL (70-99); UREA NITROGEN, BLOOD 43 mg/dL (8-21)
--- NOTE | 2022-05-21 07:55 | NUR ---
0755 RESPONDED TO CODE BLUE. UP ON ENTERING PTS ROOM CPR IN PROGRESS. LARGE AMTS BROWN EMESIS FROM PTS MOUTH. SX,D FOR LARGE AMTS. BAGGED WITH 100% FIO2. 0815 PT WAS INTUBATED WITH 7.5 ETT @ 23cm AT THE TEETH. CPR CONTINUED. ROSC ACHIEVED AT 0829. PLACED ON VENT AC 20, VT 450, PEEP 5 & FIO2 100%.
--- NOTE | 2022-05-21 07:55 | NUR ---
RESPONDED TO A CODE BLUE WITH ER DR SANDERS
--- NOTE | 2022-05-21 07:59 | NUR ---
This comic book writer alerted to arrive to the patient's bedside for a code blue event. she was noted to not be breathing by lab staff.ACLS protocol was followed that resolved in the patient being transferred to the ICU MD and family made aware
[2022-05-21] MEDS: SEVELAMER CARBONATE 800 MG TABLET PO SCH (08:00)
[2022-05-21 08:25] VITALS: BP_SYST 142
--- NOTE | 2022-05-21 08:35 | NUR ---
Dr Mcclure calls this entry writer realted to Miss vicki's plan of care. He is made aware that a code blue event was staking place
[2022-05-21] MEDS ORDERED: NACL 0.9% 1,000 ML IV ONE (08:45)
[2022-05-21] MEDS ORDERED: PANTOPRAZOLE SODIUM 40 MG/VIAL (PROTONIX) IVP SCH (09:00)
[2022-05-21] MEDS: HYDROCORTISONE 1% 28.35 GM TOPICAL OINT. TP SCH (09:00)
--- NOTE | 2022-05-21 09:11 | NUR ---
This scenario writer received a call from lab related to lab levels outside the normal range. potassium. chloride. calcium and glucose levels were reported.These were endorsed to the receiving ICU nurse (Nabil)
[2022-05-21 09:15] LABS: CHLORIDE 120 mmol/L (98-107)
[2022-05-21 09:16] LABS: CALCIUM 5.1 mg/dL (8.4-11.0)
[2022-05-21 09:17] VITALS: BP_SYST 50
--- NOTE | 2022-05-21 09:25 | NUR ---
Miss Roman is transferred to the ICU bed 7 Report is given to Nabil. He was made aware that this news writer would inform Dr. Bahena as speak with Miss Roman's family. She was transferred via bed with the Vent in place, NS bolus infusing, EKG and CXR have all been completed prior to the transfer.
[2022-05-21 09:29] VITALS: BP_SYST 174
--- NOTE | 2022-05-21 09:30 | NUR ---
Received patient from [facility] Rm. 134B s/p Code Blue with report given by [facility] RN. Patient resting in bed with no obvious signs of pain, unresponsive. Does not open eyes nor withdraws to noxious stimuli, pupils fixed and nonreactive. On telemetry monitoring, Sinus Bradycardia with HR in the 40's. On mechanical ventilation via #7.5 ETT @ 23 cm from the teeth. Ventilator settings - AC, rate 20, FiO2 70%, Vt 450, PEEP 5. Continue to monitor.
--- NOTE | 2022-05-21 09:50 | NUR ---
MD Rudolph paged for orders following transfer from [facility] s/p Code Blue. Awaiting MD response.
--- NOTE | 2022-05-21 09:56 | NUR ---
this mortgage underwriter spoke with Maddy Boucher [phone] Miss Roman's daughter. She is not the daughter Miss Roman lives with but she states she has been elected by her siblings to be the Medical POA due to her medical back ground. She was made aware of the newly diagnosis SBO, the code blue event as well as the ICU transfer. She was made aware that she would be able to see her mother through the glass panels in the ICU. She stated that she would inform other family members.
--- NOTE | 2022-05-21 10:04 | NUR ---
Dr Alvarenga made aware of code blue event and Miss Abel's subsequent transfer to ICU 7
--- NOTE | 2022-05-21 10:10 | NUR ---
MD Napoles paged for orders following transfer from [facility] s/p Magui Rosario. responded and will be onsite soon to assess patient.
[2022-05-21 10:42] LABS: HEMATOCRIT 28.5 % (36-48); MEAN CORPUSCULAR HEMOGLOBIN 31 pg (27-31); MEAN CORPUSCULAR HGB CONC 32 % (32-36); MEAN CORPUSCULAR VOLUME 97 fL (79.0-98.0); PLATELET COUNT (AUTO) 298 K/uL (130-430); RED BLOOD CELL COUNT(AUTO) 2.94 MIL/uL (4.2-6.2); RED CELL DISTRIBUTION WIDTH 16.5 % (9.0-15.0); WHITE BLOOD COUNT (AUTO) 24.8 K/uL (4.8-10.8)
[2022-05-21] MEDS ORDERED: NOREPINEPHRINE BITARTRATE 4 MG in D5W 246 ML IV PRN (10:45)
--- NOTE | 2022-05-21 10:45 | NUR ---
MD Napoles onsite and assessed patient. Orders received for Medications for BP & HR support. Continue to monitor.
[2022-05-21] MEDS ORDERED: DOPamine PREMIX 250 ML IV ONE (10:58)
[2022-05-21] MEDS ORDERED: SODIUM BICARBONATE 8.4% JECT 50 MEQ/50 ML SYRINGE ONE (10:58)
--- NOTE | 2022-05-21 11:00 | NUR ---
This sign writer letterer or painter spoke with a data entry representative from the [employer] regarding a brace for her Right hip. He was connected with ICU so that he could follow up with the patient's plan of care.
--- NOTE | 2022-05-21 11:00 | NUR ---
MD Napoles notified of Junctional HR in 30's despite IV pushes of Atropine & Sodium Bicarb. MD will return to assess patient. Continue to monitor.
[2022-05-21] MEDS ORDERED: ATROPINE SULFATE 1 MG/10 ML SYRINGE IVP ONE (11:05)
--- NOTE | 2022-05-21 11:08 | NUR ---
Code Blue started for patient in [facility]. Roscoe Napoles & Abida @ bedside managing Code Blue. Continue to monitor.
--- NOTE | 2022-05-21 11:22 | NUR ---
Patient in Asystole despite several rounds of CPR per ACLS protocols. MD Napoles at bedside pronouncing cardiac @ 1122. End of care.
--- NOTE | 2022-05-21 11:30 | NUR ---
RESPONDED TO CODE BLUE. CPR IN PROGRESS. ETT ALREADY IN PLACE. CPR CONTINUED UNTIL 1122 NO PULSE NO BP. PT PRONOUNCED AT THIS TIME.
[2022-05-21 12:07] LABS: BAND % (MANUAL) 31 % (0-6); BASOPHILS % (MANUAL) 0 % (0-2); EOSINOPHILS % (MANUAL) 0 % (0-7); LYMPHOCYTES % (MANUAL) 7 % (20-46); METAMYELOCYTES % 7 % (0-0); MONOCYTES % (MANUAL) 11 % (0-11)
--- NOTE | 2022-05-21 12:40 | NUR ---
This verse writer just recieved a call from Maddy Roman's daughter. She informed this verse writer that Miss Roman has . she wanted to thank staff for all that they had done. Deep condolences were conveyed and she was thanked for making such a kind gesture to reach out to staff and to thank them as well. It was very much appreciated.
== END 2022-05-21 11:22 | DRG 466 ==
LOC: SED 19:29 → SMU 05-13 04:45 → SIC 05-21 09:24
PROVIDERS: ADMIT Family Medicine; ATTEND Family Medicine
PROC: 0QS6XZZ Reposition Right Upper Femur, External Approach (ICD-10-PCS; principal; 2022-05-13)
PROC: 5A1D70Z Performance of Urinary Filtration, Intermittent, Less than 6 Hours Per Day (ICD-10-PCS; 2022-05-14)
PROC: 0SW90JZ Revision of Synthetic Substitute in Right Hip Joint, Open Approach (ICD-10-PCS; 2022-05-15)
PROC: 0QS6XZZ Reposition Right Upper Femur, External Approach (ICD-10-PCS; 2022-05-15)
PROC: 30233N1 Transfusion of Nonautologous Red Blood Cells into Peripheral Vein, Percutaneous Approach (ICD-10-PCS; 2022-05-16)
PROC: 5A1D70Z Performance of Urinary Filtration, Intermittent, Less than 6 Hours Per Day (ICD-10-PCS; 2022-05-16)
PROC: 5A1D70Z Performance of Urinary Filtration, Intermittent, Less than 6 Hours Per Day (ICD-10-PCS; 2022-05-18)
PROC: 0DH63UZ Insertion of Feeding Device into Stomach, Percutaneous Approach (ICD-10-PCS; 2022-05-21)
PROC: 5A12012 Performance of Cardiac Output, Single, Manual (ICD-10-PCS; 2022-05-21)
PROC: 5A1D70Z Performance of Urinary Filtration, Intermittent, Less than 6 Hours Per Day (ICD-10-PCS; 2022-05-21)
PROC: 0BH17EZ Insertion of Endotracheal Airway into Trachea, Via Natural or Artificial Opening (ICD-10-PCS; 2022-05-21)
PROC: 5A1935Z Respiratory Ventilation, Less than 24 Consecutive Hours (ICD-10-PCS; 2022-05-21)
DX: T84.020A Dislocation of internal right hip prosthesis, initial encounter (principal); A41.9 Sepsis, unspecified organism; J96.90 Respiratory failure, unspecified, unspecified whether with hypoxia or hypercapnia; S72.111A Displaced fracture of greater trochanter of right femur, initial encounter for closed fracture; N18.6 End stage renal disease; U07.1 COVID-19; E87.20 Acidosis, unspecified; I12.0 Hypertensive chronic kidney disease with stage 5 chronic kidney disease or end stage renal disease; M16.0 Bilateral primary osteoarthritis of hip; E03.9 Hypothyroidism, unspecified; Z96.641 Presence of right artificial hip joint; M81.0 Age-related osteoporosis without current pathological fracture; W18.39XA Other fall on same level, initial encounter; Y83.8 Other surgical procedures as the cause of abnormal reaction of the patient, or of later complication, without mention of misadventure at the time of the procedure; K59.00 Constipation, unspecified; D64.9 Anemia, unspecified; Z88.1 Allergy status to other antibiotic agents; Z88.0 Allergy status to penicillin; Z88.8 Allergy status to other drugs, medicaments and biological substances; Z79.899 Other long term (current) drug therapy; Z88.5 Allergy status to narcotic agent; Z99.2 Dependence on renal dialysis; Y92.89 Other specified places as the place of occurrence of the external cause; Z93.3 Colostomy status; Y93.89 Activity, other specified; Y99.8 Other external cause status; I46.9 Cardiac arrest, cause unspecified
CPT/HCPCS: 36415; 36600; 71045; 73501; 73502; 74018; 76000; 76376; 80048; 80053; 82803-TC; 85007; 85025; 85027; 85610-TC; 85730-TC; 86886; 86900; 86901; 86920; 87081; 90935; 92950; 93005; 93306; 94002; 94640; 99285; J0461; J1265; J1650; J2250; J2405; J2704; J3010; J3490; J7030; J7060; P9021; U0003